=== PATIENT | female | born 1990 | race Caucasian/White ===

== ENCOUNTER → 2020-01-24 14:15 | Outpatient (BNVA) | payer OTHER, SELFPAY | PROVIDERS: PCP Family Medicine; Visit Provider Nurse Practitioner | DX: G40.909 Epilepsy, unspecified, not intractable, without status epilepticus (principal) | CPT/HCPCS: 99204; 99999 ==

== ENCOUNTER → 2020-02-01 14:51 | Outpatient (BNVA) | payer OTHER, SELFPAY | PROVIDERS: PCP Family Medicine; Referring Provider Nurse Practitioner; Visit Provider Specialist | DX: R56.9 Unspecified convulsions (principal); F17.210 Nicotine dependence, cigarettes, uncomplicated | CPT/HCPCS: 95816 ==

== ENCOUNTER → 2020-02-08 15:06 | Outpatient (BNVA) | payer OTHER, SELFPAY | PROVIDERS: PCP Family Medicine; Visit Provider Nurse Practitioner | DX: G40.909 Epilepsy, unspecified, not intractable, without status epilepticus (principal); R56.9 Unspecified convulsions | CPT/HCPCS: 99213 ==

== ENCOUNTER → 2020-02-20 07:52 | Outpatient (BNVA) | payer OTHER, SELFPAY | PROVIDERS: PCP Family Medicine; Visit Provider Specialist | DX: G40.909 Epilepsy, unspecified, not intractable, without status epilepticus (principal) | CPT/HCPCS: 95816 ==

== ENCOUNTER → 2020-11-13 13:10 | Outpatient (BNVA) | payer OTHER, SELFPAY | PROVIDERS: PCP Family Medicine; Visit Provider Nurse Practitioner | DX: G40.909 Epilepsy, unspecified, not intractable, without status epilepticus (principal); F17.210 Nicotine dependence, cigarettes, uncomplicated | CPT/HCPCS: 99213; 99214 ==

== ENCOUNTER 2020-12-10 13:48 | Outpatient (CLI) | payer OTHER, SELFPAY ==
--- NOTE | 2020-12-10 13:45 | MR_ITS ---
WS: [id number] MRI HEAD WITH CONTRAST TECHNIQUE: Sagittal T1, T2 axial, T2 axial FLAIR, axial susceptibility weighted imaging, axial diffus ion weighted images, and coronal T2 images were obtained. Pre and post-T1 axial and post T1 coronal i mages. ADC and FSPGR images. CLINICAL INFORMATION: R56.9 - Unspecified convulsions COMPARISON: MRI January 31, 2020 FINDINGS: Nonenhancing T2 hyperintense lesion in the left parasagittal frontal lobe with expansion of the left frontal gyrus. This measures approximately 1.9 x 1.4 cm. This is similar in appearance to January 30 and appears slightly more prominent considering differences in technique, although not significant changed. No abnormal enhancement. Findings are suspicious for neoplasm. No hemosiderin on susceptibly weighted images. No restricted diffusion to suggest acute ischemia. Nor mal posterior fossa. Normal vascular flow voids at the skull base. No extra-axial fluid collections. Paranasal sinuses and mastoid air cells are well aerated. Normal optic chiasm and pituitary infundibu lum. No abnormal gadolinium enhancement. MR/MR head wo/w con [id number] IMPRESSION: 1. T2 hyperintense nonenhancing lesion left parasagittal frontal lobe with exp ansion of the left frontal gyrus. 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 No calcif ication. No enhancement. Recommend neurosurgery consult for consideration of bi opsy and 6 month interval follow-up MRI without and with gadolinium enhancement . 2. Left frontal lesion is similar in appearance to January 31, 2020 and appears s lightly more prominent but not significantly changed. Slightly more left fronta l signal abnormality and cortical expansion. 3. No abnormal gadolinium enhancement. 4. No other suspicious findings.
[2020-12-10] MEDS: gadobenate dimeglumine 20 mL vial IV (14:36)
== END 2020-12-10 13:49 | disposition home or self-care (01) ==
LOC: RADSHAW 13:51
PROVIDERS: PCP Family Medicine; Visit Provider Nurse Practitioner
DX: R56.9 Unspecified convulsions (principal); G93.9 Disorder of brain, unspecified
CPT/HCPCS: 70553; A9577